=== PATIENT | male | born 1975 | race Caucasian/White ===

== ENCOUNTER 2018-11-16 12:46 | Emergency (ER) | payer BC ==
[~2018-11-16] VITALS: Ht 180.3 cm; Wt 91.0 kg
[2018-11-16] MEDS ORDERED: KETOROLAC 60MG/2ML VIAL IM ONE (14:45)
[2018-11-16 16:14] VITALS: BP 105/60
== END 2018-11-16 16:15 | disposition home or self-care (01) ==
LOC: ER 15:20
DX: M79.605 Pain in left leg (principal)
CPT/HCPCS: 73590; 96372; 99283; J1885